=== PATIENT | female | born 1955 | race American Indian/Alaskan Native ===

== ENCOUNTER 2019-02-24 18:37 | Emergency (ER) | payer MEDICARE, SELFPAY ==
[2019-02-24 19:29] VITALS: BP 128/82; PULSE 90; RESP 18; TEMP 36.6; O2SAT 98
--- NOTE | 2019-02-24 20:39 | ED.ABDPAIN ---
HPI - Abdominal Pain General Chief Complaint: Abdominal Pain Stated Complaint: parathenesis drained Time Seen by Provider: 02/24/19 19:30 Source: patient Mode of arrival: ambulatory Limitations: no limitations History of Present Illness HPI narrative: 63-year-old female nonsmoker with history of liver disease, kidney disease presents with swelling of her abdomen consistent with prior episodes of abdominal ascites. She denies any fever chills nor any pain. She denies any nausea, vomiting or diarrhea. She denies any change in medications or diet. She was sent here by her primary care provider for evaluation of paracentesis. She is visiting locally for a [employer] [place] She was most recently admitted there about 1 week ago Onset (ago): hour(s) Location: diffuse Severity: moderate Radiation: none Migration to: no migration Relieving factors: nothing Associated symptoms: denies other symptoms Related Data Previous Rx's Medication Instructions Recorded cephalexin [Keflex] 500 mg PO QID 7 Days #28 cap 02/24/19 Review of Systems Constitutional Denies chills, Denies fever(s), Denies lethargy and Denies weakness Eyes Denies change in vision, Denies eye discharge, Denies irritation and Denies loss of vision ENT Ears, Nose, Mouth, and Throat: Denies change in voice, Denies neck pain and Denies sore throat Cardiovascular Denies chest pain, Denies irregular heart rhythm, Denies lightheadedness, Denies palpitations, Reports dyspnea, Denies dyspnea on exertion and Denies orthopnea Respiratory Denies cough, Reports dyspnea, Denies dyspnea on exertion and Denies wheezing Gastrointestinal Gastrointestinal: Denies abdominal pain, Reports bloating, Denies change in bowel habits, Denies diarrhea, Denies nausea and Denies vomiting Genitourinary Denies hematuria, Denies flank pain, Denies urinary incontinence and Denies urinary urgency Musculoskeletal Denies neck pain Integumentary/Breasts Denies pruritus, Denies erythema, Denies rash and Denies wounds Neurologic Denies confusion, Denies loss of vision and Denies weakness Psychiatric Denies anxiety, Denies confusion, Denies depression, Denies homicidal ideation and Denies suicidal ideation Endocrine Denies palpitations Hematologic/Lymphatic Denies easy bruising Allergic/Immunologic Denies wheezing PFSH Social History Smoking Status: Never smoker Social History Smoking Status: Never smoker Exam Narrative Exam Narrative: GENERAL: 63-year-old female appears stated age, resting comfortably and in no obvious distress HEAD: Atraumatic. Normocephalic. No temporal or scalp tenderness. EYES: Pupils equal round and reactive. Extraocular motions intact. No scleral icterus. No injection or drainage. ENT: Nose without bleeding, purulent drainage or septal hematoma. Throat without erythema, tonsillar hypertrophy or exudate. Uvula midline. Airway patent. NECK: Trachea midline. No JVD or lymphadenopathy. Supple, nontender, no meningeal signs. CARDIOVASCULAR: Regular rate and rhythm without murmurs, gallops, or rubs. RESPIRATORY: Clear to auscultation. Breath sounds equal bilaterally. No wheezes, rales, or rhonchi. GASTROINTESTINAL: Large distended abdomen is soft and nontender with positive fluid wave. No warmth or erythema EXTREMITIES: No clubbing, cyanosis, or edema. No joint tenderness, effusion, or edema noted. BACK: Nontender without deformity or crepitance. No flank tenderness. NEURO: AOx3. SKIN: No rash or erythema. Initial Vital Signs Initial Vital Signs: Vital Signs Temperature 97.9 F 02/24/19 19:29 Pulse Rate 90 02/24/19 19:29 Respiratory Rate 18 02/24/19 19:29 Blood Pressure 128/82 02/24/19 19:29 Pulse Oximetry 98 02/24/19 19:29 Course Orders Ordered: ED Orders 02/24/19 20:40 Complete Blood Count AUTO DIFF Stat Comprehensive Metabolic Panel Stat Lactate (Lactic Acid) Stat Procalcitonin Stat Prothrombin Time INR Stat 02/24/19 20:49 Urine Culture Stat Urine Microscopic Stat Vital Signs - 8 hr 02/24/19 19:29 02/24/19 21:54 Temperature 97.9 F 97.9 F Pulse Rate 90 84 Respiratory Rate 18 18 Blood Pressure 128/82 Blood Pressure [Right Arm] 117/73 Pulse Oximetry 98 100 MDM - Abdominal Pain Lab Data Result diagrams: 02/24/19 20:40 02/24/19 20:40 Lab Results 02/24/19 02/24/19 02/24/19 Range/Units 20:40 20:40 20:40 WBC 4.9 (4.5-11.0) X10^3/uL RBC 3.90 L (4.0-5.2) X10^6/uL Hgb 11.4 L (12.0-16.0) g/dL Hct 34.4 L (36-46) % MCV 88.1 (80-100) fL MCH 29.1 (26-34) PG MCHC 33.0 (30-36) % RDW 20.2 H (11.6-14.8) % Plt Count 134 L (150-400) X10^3/uL Neut % (Auto) 65.2 (50-75) % Lymph % (Auto) 16.4 L (25-40) % [place] % (Auto) 12.5 (3-14) % Eos % (Auto) 4.5 H (2-4) % Baso % (Auto) 1.4 (0-2) % Neut # (Auto) 3200 (0755-9419) /uL Lymph # (Auto) 800 L (1325-7197) /uL [place] # (Auto) 600 (0-900) /uL Eos # (Auto) 200 (0-450) /uL Baso # (Auto) 100 (0-100) /uL RBC Morphology See below Polychromasia 1+ H Poikilocytosis 1+ H Anisocytosis 1+ H PT 13.7 H (10.1-12.7) SECONDS INR 1.2 (0.9-1.3) Sodium (137-145) mmol/L Potassium (3.4-5.1) mmol/L Chloride (98-107) mmol/L Carbon Dioxide (22-32) mmol/L BUN (7-17) mg/dL Creatinine (0.52-1.04) mg/dL Estimated GFR (>60) mL/min BUN/Creatinine Ratio (6-22) Glucose (80-110) mg/dL Lactate (0.7-2.1) mmol/L Calcium (8.4-10.2) mg/dL Total Bilirubin (0.2-1.3) mg/dL AST (14-36) IU/L ALT (9-52) IU/L Alkaline Phosphatase (38-126) U/L Total Protein (6.3-8.2) g/dL Albumin (3.5-5.0) g/dL Globulin (1.7-4.1) g/dL Albumin/Globulin Ratio (1.0-2.8) Procalcitonin < 0.05 (<0.5) ng/mL Urine RBC (0-5/HPF) Urine WBC (0-5/HPF) Ur Squamous Epith Cells (0-5/HPF) Urine Bacteria (None) Hyaline Casts (None) Ur Culture Indicated? 02/24/19 02/24/19 02/24/19 Range/Units 20:40 20:40 20:49 WBC (4.5-11.0) X10^3/uL RBC (4.0-5.2) X10^6/uL Hgb (12.0-16.0) g/dL Hct (36-46) % MCV (80-100) fL MCH (26-34) PG MCHC (30-36) % RDW (11.6-14.8) % Plt Count (150-400) X10^3/uL Neut % (Auto) (50-75) % Lymph % (Auto) (25-40) % [place] % (Auto) (3-14) % Eos % (Auto) (2-4) % Baso % (Auto) (0-2) % Neut # (Auto) (7271-9801) /uL Lymph # (Auto) (2130-7171) /uL [place] # (Auto) (0-900) /uL Eos # (Auto) (0-450) /uL Baso # (Auto) (0-100) /uL RBC Morphology Polychromasia Poikilocytosis Anisocytosis PT (10.1-12.7) SECONDS INR (0.9-1.3) Sodium 132 L (137-145) mmol/L Potassium 3.9 (3.4-5.1) mmol/L Chloride 102 (98-107) mmol/L Carbon Dioxide 24 (22-32) mmol/L BUN 19 H (7-17) mg/dL Creatinine 1.20 H (0.52-1.04) mg/dL Estimated GFR 45.1 L (>60) mL/min BUN/Creatinine Ratio 15.8 (6-22) Glucose 108 (80-110) mg/dL Lactate 0.8 (0.7-2.1) mmol/L Calcium 8.2 L (8.4-10.2) mg/dL Total Bilirubin 0.9 (0.2-1.3) mg/dL AST 21 (14-36) IU/L ALT 10 (9-52) IU/L Alkaline Phosphatase 73 (38-126) U/L Total Protein 6.5 (6.3-8.2) g/dL Albumin 3.0 L (3.5-5.0) g/dL Globulin 3.5 (1.7-4.1) g/dL Albumin/Globulin Ratio 0.9 L (1.0-2.8) Procalcitonin (<0.5) ng/mL Urine RBC 5-10/hpf H (0-5/HPF) Urine WBC 5-10/hpf H (0-5/HPF) Ur Squamous Epith Cells 0-1 /hpf (0-5/HPF) Urine Bacteria Many (>30) H (None) Hyaline Casts 1-5/lpf (None) Ur Culture Indicated? Specimen cultured Point of care testing: Urine Dip Bedside Urine Glucose Negative Bedside Urine Bilirubin - Negative Bedside Urine Ketone +/- 5 Urine Specific [place] 1.015 Bedside Urine Occult Blood ++ Bedside Urine pH 5.5 Bedside Urine Protein +/- 15 Bedside Urine Urobilinogen +/- 1mg Bedside Urine Nitrite + Positive Bedside Urine Leukocytes - Negative Esterase MDM Narrative Medical decision making narrative: 63-year-old female with cirrhosis and history of ascites presents with fullness of her abdomen and in, requesting paracentesis. She denies any significant pain, has no fever or chills, has stable vital signs. SHe is in no respiratory distress. She does not require emergent paracentesis. She has been given return precautions and has had her questions answered to her apparent satisfaction Discharge Plan Departure Patient Disposition: Home Clinical Impression: Acute UTI Ascites Qualifiers: Ascites type: other type Qualified Code(s): R18.8 - Other ascites Discharge Date/Time: 02/24/19 22:30 Interventions: ED Discharge Assessment Last Done: 02/24/19 22:42 Instructions: Ascites, DI for Urinary Tract Infection (UTI) Activity Restrictions/Additional Instructions: *You have been diagnosed with [abdominal ascites and acute urinary tract infection] *What to do: *Take medications as directed *Follow up with your primary care provider in 2-3 days, call for an appointment. Let them know you were seen in the Emergency Department and that we ask that you be seen in follow up *Return to ER if you should have any new, worsening or concerning symptoms Prescriptions: New cephalexin [Keflex] 500 mg capsule 500 mg PO QID 7 Days Qty: 28 RF: 0
--- NOTE | 2019-02-24 20:42 | ED_ITS ---
HPI - Abdominal Pain General Chief Complaint: Abdominal Pain Stated Complaint: parathenesis drained Time Seen by Provider: 02/24/19 19:30 Source: patient Mode of arrival: ambulatory Limitations: no limitations History of Present Illness HPI narrative: 63-year-old female nonsmoker with history of liver disease, kidne y disease presents with swelling of her abdomen consistent with prior episodes of abdominal ascites. She denies any fever chills nor any pain. She denies any nausea, vomiting or diarrhea. She denies any change in medications or diet. She was sent here by her primary care provider for evaluation of paracentesis. She is visiting locally for a [employer] competition [place] She was most recently admitted there about 1 week ago Onset (ago): hour(s) Location: diffuse Severity: moderate Radiation: none Migration to: no migration Relieving factors: nothing Associated symptoms: denies other symptoms Related Data Previous Rx's Medication Instructions Recorded cephalexin [Keflex] 500 mg PO QID 7 Days #28 cap 02/24/19 Review of Systems Constitutional Denies chills, Denies fever(s), Denies lethargy and Denies weakness Eyes Denies change in vision, Denies eye discharge, Denies irritation and Denies loss of vision ENT Ears, Nose, Mouth, and Throat: Denies change in voice, Denies neck pain and Denies sore throat Cardiovascular Denies chest pain, Denies irregular heart rhythm, Denies lightheadedness, Denies palpitations, Reports dyspnea, Denies dyspnea on exertion and Denies orthopnea Respiratory Denies cough, Reports dyspnea, Denies dyspnea on exertion and Denies wheezing Gastrointestinal Gastrointestinal: Denies abdominal pain, Reports bloating, Denies change in bowel habits, Denies diarrhea, Denies nausea and Denies vomiting Genitourinary Denies hematuria, Denies flank pain, Denies urinary incontinence and Denies urinary urgency Musculoskeletal Denies neck pain Integumentary/Breasts Denies pruritus, Denies erythema, Denies rash and Denies wounds Neurologic Denies confusion, Denies loss of vision and Denies weakness Psychiatric Denies anxiety, Denies confusion, Denies depression, Denies homicidal ideation and Denies suicidal ideation Endocrine Denies palpitations Hematologic/Lymphatic Denies easy bruising Allergic/Immunologic Denies wheezing PFSH Social History Smoking Status: Never smoker Social History Smoking Status: Never smoker Exam Narrative Exam Narrative: GENERAL: 63-year-old female appears stated age, resting comfortably and in no obvious distress HEAD: Atraumatic. Normocephalic. No temporal or scalp tenderness. EYES: Pupils equal round and reactive. Extraocular motions intact. No scleral icterus. No injection or drainage. ENT: Nose without bleeding, purulent drainage or septal hematoma. Throat without erythema, tonsillar hypertrophy or exudate. Uvula midline. Airway patent. NECK: Trachea midline. No JVD or lymphadenopathy. Supple, nontender, no meningeal signs. CARDIOVASCULAR: Regular rate and rhythm without murmurs, gallops, or rubs. RESPIRATORY: Clear to auscultation. Breath sounds equal bilaterally. No wheezes, rales, or rhonchi. GASTROINTESTINAL: Large distended abdomen is soft and nontender with positive fluid wave. No warmth or erythema EXTREMITIES: No clubbing, cyanosis, or edema. No joint tenderness, effusion, or edema noted. BACK: Nontender without deformity or crepitance. No flank tenderness. NEURO: AOx3. SKIN: No rash or erythema. Initial Vital Signs Initial Vital Signs: Vital Signs Temperature 97.9 F 02/24/19 19:29 Pulse Rate 90 02/24/19 19:29 Respiratory Rate 18 02/24/19 19:29 Blood Pressure 128/82 02/24/19 19:29 Pulse Oximetry 98 02/24/19 19:29 Course Orders Ordered: ED Orders 02/24/19 20:40 Complete Blood Count AUTO DIFF Stat Comprehensive Metabolic Panel Stat Lactate (Lactic Acid) Stat Procalcitonin Stat Prothrombin Time INR Stat 02/24/19 20:49 Urine Culture Stat Urine Microscopic Stat Vital Signs - 8 hr 02/24/19 19:29 02/24/19 21:54 Temperature 97.9 F 97.9 F Pulse Rate 90 84 Respiratory Rate 18 18 Blood Pressure 128/82 Blood Pressure [Right Arm] 117/73 Pulse Oximetry 98 100 MDM - Abdominal Pain Lab Data Result diagrams: 02/24/19 20:40 02/24/19 20:40 Lab Results 02/24/19 02/24/19 02/24/19 Range/Units 20:40 20:40 20:40 WBC 4.9 (4.5-11.0) X10^3/uL RBC 3.90 L (4.0-5.2) X10^6/uL Hgb 11.4 L (12.0-16.0) g/dL Hct 34.4 L (36-46) % MCV 88.1 (80-100) fL MCH 29.1 (26-34) PG MCHC 33.0 (30-36) % RDW 20.2 H (11.6-14.8) % Plt Count 134 L (150-400) X10^3/uL Neut % (Auto) 65.2 (50-75) % Lymph % (Auto) 16.4 L (25-40) % [place] % (Auto) 12.5 (3-14) % Eos % (Auto) 4.5 H (2-4) % Baso % (Auto) 1.4 (0-2) % Neut # (Auto) 3200 (1638-5527) /uL Lymph # (Auto) 800 L (5131-1156) /uL [place] # (Auto) 600 (0-900) /uL Eos # (Auto) 200 (0-450) /uL Baso # (Auto) 100 (0-100) /uL RBC Morphology See below Polychromasia 1+ H Poikilocytosis 1+ H Anisocytosis 1+ H PT 13.7 H (10.1-12.7) SECONDS INR 1.2 (0.9-1.3) Sodium (137-145) mmol/L Potassium (3.4-5.1) mmol/L Chloride (98-107) mmol/L Carbon Dioxide (22-32) mmol/L BUN (7-17) mg/dL Creatinine (0.52-1.04) mg/dL Estimated GFR (>60) mL/min BUN/Creatinine Ratio (6-22) Glucose (80-110) mg/dL Lactate (0.7-2.1) mmol/L Calcium (8.4-10.2) mg/dL Total Bilirubin (0.2-1.3) mg/dL AST (14-36) IU/L ALT (9-52) IU/L Alkaline Phosphatase (38-126) U/L Total Protein (6.3-8.2) g/dL Albumin (3.5-5.0) g/dL Globulin (1.7-4.1) g/dL Albumin/Globulin Ratio (1.0-2.8) Procalcitonin < 0.05 (<0.5) ng/mL Urine RBC (0-5/HPF) Urine WBC (0-5/HPF) Ur Squamous Epith Cells (0-5/HPF) Urine Bacteria (None) Hyaline Casts (None) Ur Culture Indicated? 02/24/19 02/24/19 02/24/19 Range/Units 20:40 20:40 20:49 WBC (4.5-11.0) X10^3/uL RBC (4.0-5.2) X10^6/uL Hgb (12.0-16.0) g/dL Hct (36-46) % MCV (80-100) fL MCH (26-34) PG MCHC (30-36) % RDW (11.6-14.8) % Plt Count (150-400) X10^3/uL Neut % (Auto) (50-75) % Lymph % (Auto) (25-40) % [place] % (Auto) (3-14) % Eos % (Auto) (2-4) % Baso % (Auto) (0-2) % Neut # (Auto) (7214-3825) /uL Lymph # (Auto) (1161-6668) /uL [place] # (Auto) (0-900) /uL Eos # (Auto) (0-450) /uL Baso # (Auto) (0-100) /uL RBC Morphology Polychromasia Poikilocytosis Anisocytosis PT (10.1-12.7) SECONDS INR (0.9-1.3) Sodium 132 L (137-145) mmol/L Potassium 3.9 (3.4-5.1) mmol/L Chloride 102 (98-107) mmol/L Carbon Dioxide 24 (22-32) mmol/L BUN 19 H (7-17) mg/dL Creatinine 1.20 H (0.52-1.04) mg/dL Estimated GFR 45.1 L (>60) mL/min BUN/Creatinine Ratio 15.8 (6-22) Glucose 108 (80-110) mg/dL Lactate 0.8 (0.7-2.1) mmol/L Calcium 8.2 L (8.4-10.2) mg/dL Total Bilirubin 0.9 (0.2-1.3) mg/dL AST 21 (14-36) IU/L ALT 10 (9-52) IU/L Alkaline Phosphatase 73 (38-126) U/L Total Protein 6.5 (6.3-8.2) g/dL Albumin 3.0 L (3.5-5.0) g/dL Globulin 3.5 (1.7-4.1) g/dL Albumin/Globulin Ratio 0.9 L (1.0-2.8) Procalcitonin (<0.5) ng/mL Urine RBC 5-10/hpf H (0-5/HPF) Urine WBC 5-10/hpf H (0-5/HPF) Ur Squamous Epith Cells 0-1 /hpf (0-5/HPF) Urine Bacteria Many (>30) H (None) Hyaline Casts 1-5/lpf (None) Ur Culture Indicated? Specimen cultured Point of care testing: Urine Dip Bedside Urine Glucose Negative Bedside Urine Bilirubin - Negative Bedside Urine Ketone +/- 5 Urine Specific [place] 1.015 Bedside Urine Occult Blood ++ Bedside Urine pH 5.5 Bedside Urine Protein +/- 15 Bedside Urine Urobilinogen +/- 1mg Bedside Urine Nitrite + Positive Bedside Urine Leukocytes - Negative Esterase MDM Narrative Medical decision making narrative: 63-year-old female with cirrhosis and history of ascites presents with fullness of her abdomen and in, requesting paracentesis. She denies any significant pain, has no fever or chills, has stable vital signs. SHe is in no respiratory distress. She does not require emergent paracentesis. She has been given return precautions and has had her questions answered to her apparent satisfaction Discharge Plan Departure Patient Disposition: Home Clinical Impression: Acute UTI Ascites Qualifiers: Ascites type: other type Qualified Code(s): R18.8 - Other ascites Discharge Date/Time: 02/24/19 22:30 Interventions: ED Discharge Assessment Last Done: 02/24/19 22:42 Instructions: Ascites, DI for Urinary Tract Infection (UTI) Activity Restrictions/Additional Instructions: *You have been diagnosed with [abdominal ascites and acute urinary tract infection] *What to do: *Take medications as directed *Follow up with your primary care provider in 2-3 days, call for an appointment. Let them know you were seen in the Emergency Department and that we ask that you be seen in follow up *Return to ER if you should have any new, worsening or concerning symptoms Prescriptions: New cephalexin [Keflex] 500 mg capsule 500 mg PO QID 7 Days Qty: 28 RF: 0
[2019-02-24 20:55] LABS: INR 1.2 (0.9-1.3); Prothrombin Time 13.7 SECONDS (10.1-12.7)
[2019-02-24 20:59] LABS: Add Manual Diff / Slide Review NO; Basophils Absolute Auto 100 /uL (0-100); Basophils Percent Auto 1.4 % (0-2); Eosinophils Absolute Auto 200 /uL (0-450); Eosinophils Percent Auto 4.5 % (2-4); Hematocrit 34.4 % (36-46); Hemoglobin 11.4 g/dL (12.0-16.0); Lactate (Lactic Acid) 0.8 mmol/L (0.7-2.1); Lymphocytes Absolute Auto 800 /uL (1100-4500); Lymphocytes Percent Auto 16.4 % (25-40); Mean Corpuscular Hemoglobin 29.1 PG (26-34); Mean Corpuscular Volume 88.1 fL (80-100); Monocytes Absolute Auto 600 /uL (0-900); Monocytes Percent Auto 12.5 % (3-14); Neutrophils Absolute Auto 3200 /uL (1500-7000); Neutrophils Percent Auto 65.2 % (50-75); Platelet Count 134 X10^3/uL (150-400); Red Cell Distribution Width 20.2 % (11.6-14.8); White Blood Cell Count 4.9 X10^3/uL (4.5-11.0)
[2019-02-24 21:00] LABS: Alanine Aminotransferase 10 IU/L (9-52); Albumin Globulin Ratio 0.9 (1.0-2.8); Alkaline Phosphatase 73 U/L (38-126); Aspartate Aminotransferase 21 IU/L (14-36); BUN Creatinine Ratio 15.8 (6-22); Bilirubin Total 0.9 mg/dL (0.2-1.3); Blood Urea Nitrogen 19 mg/dL (7-17); Calcium 8.2 mg/dL (8.4-10.2); Carbon Dioxide 24 mmol/L (22-32); Chloride 102 mmol/L (98-107); Estimated Glomerular Filt Rate 45.1 mL/min (>60); Globulin 3.5 g/dL (1.7-4.1); Glucose 108 mg/dL (80-110); HEMOLYSIS < 15 (0-50); Potassium 3.9 mmol/L (3.4-5.1); Sodium 132 mmol/L (137-145); Total Protein 6.5 g/dL (6.3-8.2)
[2019-02-24 21:07] LABS: Bacteria Urine Many (>30); Culture Indicated Urine Specimen Cultured; Hyaline Casts Urine 1-5/LPF; RBC Urine 5-10/HPF (0-5/HPF); Squamous Epithelial Cell Urine 0-1 /HPF (0-5/HPF); WBC Urine 5-10/HPF (0-5/HPF)
[2019-02-24 21:18] LABS: Procalcitonin < 0.05 ng/mL (<0.5)
[2019-02-24 21:25] LABS: Anisocytosis 1+; Poikilocytosis 1+; Polychromasia 1+
[2019-02-24 21:54] VITALS: BP 117/73; PULSE 84; RESP 18; TEMP 36.6; O2SAT 100
== END 2019-02-24 22:30 | disposition home or self-care (01) ==
PROVIDERS: Emergency Provider Emergency Medicine
DX: N39.0 Urinary tract infection, site not specified (principal); R18.8 Other ascites
CPT/HCPCS: 36415; 80053; 81003; 81015; 83605; 84145; 85025; 85610; 87077; 87086; 87186; 99282; 99283

== ENCOUNTER 2019-02-25 08:49 | Emergency (ER) | payer MEDICARE, SELFPAY ==
[2019-02-25 08:50] VITALS: BP 136/64; PULSE 94; RESP 20; TEMP 36.8; O2SAT 95; BMI 36.2
[2019-02-25 09:00] VITALS: BP 133/72; PULSE 91; RESP 17; O2SAT 97
--- NOTE | 2019-02-25 09:14 | ED.ABDPAIN ---
HPI - Abdominal Pain General Chief Complaint: Abdominal Pain Stated Complaint: Needs draining of abd area Time Seen by Provider: 02/25/19 09:13 Source: patient Mode of arrival: ambulatory Limitations: no limitations History of Present Illness HPI narrative: This is a 63-year-old female comes to the emergency department with complaint of ascites. Patient is requesting paracentesis. She was here last night and was told that she could return. Patient typically gets them on a weekly basis but as an outpatient. She is currently traveling with the [employer] group that is in the area this week. She has not had a paracentesis for about 10 days and is having increasingly distended abdomen with increasing shortness of breath. Patient denies any fevers or chills. She denies any chest pain or pressure. No nausea no vomiting no other GI or urinary symptoms although she was told that she had a UTI yesterday. She states she is given a prescription for Keflex but she thinks that might be the antibiotic she is allergic to. We are obtaining records to check her allergy list. She states that she does have chronic cirrhosis resulting in her ascites, she has some chronic kidney disease which she relates secondary to a rheumatologic medication that caused complications. And that she has referral to cardiology, pulmonology as well as liver doctors. She normally lives in [place] and had discussed the plan with her physician who told her to go to the local hospital to get paracentesis. She denies any other new changes or issues. She denies any prior surgeries. Denies any current blood thinners. Related Data Home Medications Medication Instructions Recorded Confirmed furosemide 20 mg PO DAILY 02/25/19 02/25/19 hydrocodone-acetaminophen 1 tab PO QID PRN 02/25/19 02/25/19 hydroxyzine HCl 25 mg PO BID 02/25/19 02/25/19 lisinopril 20 mg PO DAILY 02/25/19 02/25/19 morphine 15 mg PO DAILY 02/25/19 02/25/19 oxycodone 10 mg PO BID 02/25/19 02/25/19 potassium chloride [Klor-Con 10] 10 meq PO BID 02/25/19 02/25/19 Previous Rx's Medication Instructions Recorded cephalexin [Keflex] 500 mg PO QID 7 Days #28 cap 02/24/19 Allergies Allergy/AdvReac Type Severity Reaction Status Date / Time codeine Allergy Verified 02/25/19 09:05 Unknown Antibiotic Allergy Uncoded 02/25/19 09:05 Review of Systems Review of Systems ROS Unobtainable: All systems reviewed & are unremarkable except as noted in HPI and below Constitutional Denies chills, Denies fever(s), Denies lethargy and Denies weakness Cardiovascular Denies chest pain, Denies irregular heart rhythm, Denies lightheadedness, Denies palpitations, Reports dyspnea and Denies orthopnea Respiratory Denies chest congestion, Denies cough, Reports dyspnea and Denies wheezing Gastrointestinal Gastrointestinal: Denies abdominal pain, Denies melena, Denies hematochezia, Denies change in bowel habits, Denies constipation, Denies diarrhea, Denies nausea, Denies vomiting and Reports other (ascites, abdomen getting larger) Genitourinary Denies hematuria, Denies urinary frequency, Denies dysuria, Denies flank pain, Denies urinary incontinence and Denies urinary urgency Neurologic Denies weakness Endocrine Denies palpitations Allergic/Immunologic Denies wheezing [facility] Social History Smoking Status: Never smoker Exam Narrative Exam Narrative: GENERAL: Alert and oriented x three, moderately obese female in mild distress. HEENT: Head normocephalic, atraumatic, EOMI, pupils reactive, face symmetric, moist mucous membranes NECK: Supple, full range of motion CARDIOVASCULAR: Regular rate and rhythm without murmurs, rubs or gallops. RESPIRATORY: Breath sounds equal bilaterally, no wheezes rales or rhonchi. ABDOMEN: Soft, nontender, distended with soft abdomen, + fluid wave. Normoactive bowel sounds all 4 quadrants. No guarding or rebound, rigidity, no mass : No CVA tenderness EXTREMITIES: Normal range of motion, no clubbing or edema. Neurovascularly intact NEUROLOGICAL: Cranial nerves II through XII grossly intact. Moving all extremities SKIN: Warm, dry, no petechiae, no rashes or lesions. Initial Vital Signs Initial Vital Signs: Vital Signs Temperature 98.3 F 02/25/19 08:50 Pulse Rate 94 H 02/25/19 08:50 Respiratory Rate 20 02/25/19 08:50 Blood Pressure 136/64 02/25/19 08:50 Pulse Oximetry 95 02/25/19 08:50 Course Orders Ordered: ED Orders 02/25/19 09:25 Complete Blood Count AUTO DIFF Stat Comprehensive Metabolic Panel Stat Partial Thromboplastin Time Stat Prothrombin Time INR Stat 02/25/19 09:37 US paracentesis Stat Vital Signs - 8 hr 02/25/19 12:00 02/25/19 12:45 Pulse Rate 87 86 Respiratory Rate 16 20 Blood Pressure 110/61 Blood Pressure [Right Arm] 121/59 L Pulse Oximetry 91 96 MDM - Abdominal Pain Lab Data Attestation: I reviewed the patient's lab results. Result diagrams: 02/25/19 09:25 02/25/19 09:25 Lab Results 02/25/19 02/25/19 02/25/19 Range/Units 09:25 09:25 09:25 WBC 4.8 (4.5-11.0) X10^3/uL RBC 3.80 L (4.0-5.2) X10^6/uL Hgb 11.2 L (12.0-16.0) g/dL Hct 33.2 L (36-46) % MCV 87.2 (80-100) fL MCH 29.5 (26-34) PG MCHC 33.8 (30-36) % RDW 20.2 H (11.6-14.8) % Plt Count 135 L (150-400) X10^3/uL Neut % (Auto) 64.3 (50-75) % Lymph % (Auto) 16.0 L (25-40) % Crockett % (Auto) 11.6 (3-14) % Eos % (Auto) 7.2 H (2-4) % Baso % (Auto) 0.9 (0-2) % Neut # (Auto) 3100 (1043-1735) /uL Lymph # (Auto) 800 L (4025-2645) /uL Crockett # (Auto) 600 (0-900) /uL Eos # (Auto) 300 (0-450) /uL Baso # (Auto) 0 (0-100) /uL RBC Morphology See below Anisocytosis 1+ H Ovalocytes 1+ H PT 13.7 H (10.1-12.7) SECONDS INR 1.2 (0.9-1.3) APTT 32 (26.4-36.2) SECONDS Sodium 134 L (137-145) mmol/L Potassium 4.0 (3.4-5.1) mmol/L Chloride 102 (98-107) mmol/L Carbon Dioxide 22 (22-32) mmol/L BUN 20 H (7-17) mg/dL Creatinine 1.20 H (0.52-1.04) mg/dL Estimated GFR 45.1 L (>60) mL/min BUN/Creatinine Ratio 16.7 (6-22) Glucose 131 H (80-110) mg/dL Calcium 8.1 L (8.4-10.2) mg/dL Total Bilirubin 1.0 (0.2-1.3) mg/dL AST 20 (14-36) IU/L ALT 12 (9-52) IU/L Alkaline Phosphatase 71 (38-126) U/L Total Protein 6.4 (6.3-8.2) g/dL Albumin 3.1 L (3.5-5.0) g/dL Globulin 3.3 (1.7-4.1) g/dL Albumin/Globulin Ratio 0.9 L (1.0-2.8) MDM Narrative Medical decision making narrative: Records obtained, + for allergy to Ciprofloxacin. No allergy noted to cephalexin. Patient has not started the medication yet. Patient's labs from yesterday were reviewed, I spoke with radiology and there happy to oblige with paracentesis. Patient's labs were repeated today. No acute changes from yesterday. Patient had paracentesis, tolerated procedure well. she is requesting discharge home. Discharge Plan Departure Patient Disposition: Home Clinical Impression: Ascites, S/P abdominal paracentesis Discharge Date/Time: 02/25/19 12:46 Interventions: ED Discharge Assessment Last Done: 02/25/19 12:45 Instructions: DI for Abdominal Paracentesis Activity Restrictions/Additional Instructions: Follow up with your physician in the next week. Continue home medications as prescribed. I would recommend her antibiotics as her urine culture is positive for gram-negative bacilli. It will take another 24 hours to have the final report for sensitivities. Return for new chest pain, shortness of breath, new abdominal pain, fevers greater than 100.4 F, persistent vomiting, black or bloody stools or other new or concerning symptoms. Prescriptions: No Action cephalexin [Keflex] 500 mg capsule 500 mg PO QID 7 Days Qty: 28 RF: 0 hydrocodone-acetaminophen 5-325 mg tablet 1 tab PO QID PRN (Reason: pain) RF: 0 lisinopril 20 mg tablet 20 mg PO DAILY RF: 0 potassium chloride [Klor-Con 10] 10 mEq tablet extended release 10 meq PO BID RF: 0 hydroxyzine HCl 25 mg tablet 25 mg PO BID RF: 0 morphine 15 mg tablet extended release 15 mg PO DAILY RF: 0 furosemide 20 mg tablet 20 mg PO DAILY RF: 0 oxycodone 10 mg tablet 10 mg PO BID RF: 0
--- NOTE | 2019-02-25 09:37 | DI.US.S_ITS ---
PROCEDURE: US PARACENTESIS INDICATIONS: ASCITES, SOB TECHNIQUE: The indications, alternatives, benefits, risks, and complications of the procedure were explained to the patient. Written informed consent was obtained and placed in the chart. The abdomen and pelvis were examined sonographically, and an appropriate site was chosen for paracentesis. The skin was prepared and draped in the usual sterile fashion, and 1% lidocaine was infiltrated from the skin down through the peritoneal surface. A 19-gauge catheter-covered needle was then introduced into the peritoneal space, the catheter was advanced and the needle was withdrawn, and thereafter peritoneal fluid was withdrawn. The catheter was then removed and a dressing was applied. The fluid was discarded if the clinician did not order diagnostic testing of the fluid. COMPARISON: None. FINDINGS: Access site: Right lower quadrant Needle: One-Step Yuehcentesis catheter with introducer needle. Fluid volume and description: Ute milky, 3600 cc removed. Fluid sent for diagnostic testing: Not requested. Medications: 1% lidocaine for local anaesthesia. Complications: None. IMPRESSION: Successful ultrasound-guided paracentesis. 3.6 L removed. Dictated by: Ti Jorge M.D. on 02/25/2019 at 12:10 Approved by: Ti Jorge M.D. on 02/25/2019 at 12:12
[2019-02-25 09:41] LABS: Add Manual Diff / Slide Review NO; Basophils Absolute Auto 0 /uL (0-100); Basophils Percent Auto 0.9 % (0-2); Eosinophils Absolute Auto 300 /uL (0-450); Eosinophils Percent Auto 7.2 % (2-4); Hematocrit 33.2 % (36-46); Hemoglobin 11.2 g/dL (12.0-16.0); Lymphocytes Absolute Auto 800 /uL (1100-4500); Mean Corpuscular HGB Conc 33.8 % (30-36); Mean Corpuscular Hemoglobin 29.5 PG (26-34); Mean Corpuscular Volume 87.2 fL (80-100); Monocytes Absolute Auto 600 /uL (0-900); Monocytes Percent Auto 11.6 % (3-14); Neutrophils Absolute Auto 3100 /uL (1500-7000); Neutrophils Percent Auto 64.3 % (50-75); Platelet Count 135 X10^3/uL (150-400); Red Cell Distribution Width 20.2 % (11.6-14.8); White Blood Cell Count 4.8 X10^3/uL (4.5-11.0)
[2019-02-25 10:00] VITALS: BP 111/63; PULSE 95; RESP 16; O2SAT 94
[2019-02-25 10:08] LABS: Alanine Aminotransferase 12 IU/L (9-52); Albumin 3.1 g/dL (3.5-5.0); Albumin Globulin Ratio 0.9 (1.0-2.8); Alkaline Phosphatase 71 U/L (38-126); Aspartate Aminotransferase 20 IU/L (14-36); BUN Creatinine Ratio 16.7 (6-22); Blood Urea Nitrogen 20 mg/dL (7-17); Calcium 8.1 mg/dL (8.4-10.2); Carbon Dioxide 22 mmol/L (22-32); Chloride 102 mmol/L (98-107); Estimated Glomerular Filt Rate 45.1 mL/min (>60); Globulin 3.3 g/dL (1.7-4.1); Glucose 131 mg/dL (80-110); HEMOLYSIS < 15 (0-50); Sodium 134 mmol/L (137-145); Total Protein 6.4 g/dL (6.3-8.2)
[2019-02-25 10:12] LABS: INR 1.2 (0.9-1.3); Prothrombin Time 13.7 SECONDS (10.1-12.7)
[2019-02-25 10:14] LABS: PTT Partial Thromboplastin Tim 32 SECONDS (26.4-36.2)
[2019-02-25 10:39] LABS: Anisocytosis 1+; Ovalocytes 1+
[2019-02-25 12:00] VITALS: BP 121/59; PULSE 87; RESP 16; O2SAT 91
[2019-02-25 12:45] VITALS: BP 110/61; PULSE 86; RESP 20; O2SAT 96
== END 2019-02-25 12:46 | disposition home or self-care (01) ==
PROVIDERS: Emergency Provider Emergency Medicine
DX: R18.8 Other ascites (principal)
CPT/HCPCS: 36415; 49083; 80053; 85025; 85610; 85730; 99283; 99284